=== PATIENT | male | born 1965 ===

== ENCOUNTER 2019-06-09 03:52 | Outpatient (CLI) | payer SELFPAY ==
[2019-06-09 09:02] LABS: CHOL/HDL RATIO 2.84 (0.00-4.99)
[2019-06-09 09:07] LABS: HEMOGLOBIN A1C 5.2 % (4.5-6.2)
== END 2019-06-09 23:59 | disposition home or self-care (01) ==
LOC: HW HEART 03:52
DX: Z13.6 Encounter for screening for cardiovascular disorders (principal)
CPT/HCPCS: 36415; G0438